=== PATIENT | female | born 1945 | race Caucasian/White ===

== ENCOUNTER 2024-03-30 06:56 | Emergency (ER) | payer MEDICARE, OTHER, SELFPAY ==
[2024-03-30] VITALS (9 sets, daily range): BP systolic 146–187; BP diastolic 71–87; PULSE 68–79; RESP 16–22; TEMP 36.1; O2SAT 93–99; BMI 24.5
--- NOTE | 2024-03-30 07:14 | ED.SEIZURE ---
HPI - Seizure General Chief Complaint: Seizure Stated Complaint: Seizure Time Seen by Provider: 03/30/24 07:14 Source: patient and EMS Mode of arrival: EMS Limitations: no limitations History of Present Illness HPI Narrative: 79-year-old female presents from home via ambulance for possible seizure-like activity. According to EMS patient did receive 1 mg of Versed, patient has a history of seizures approximately 8 years ago and was cleared by neuro at that time therefore patient not currently on any antiepileptics at this time. Patient states that the last thing she remembered was going to sleep and then waking up in the ambulance. Currently she is not complaining of any symptoms just feels a little tired. Denies any headache visual disturbances chest pain shortness breath fever chills nausea vomiting abdominal pain or any other GI/ symptoms time. States that she has a history of high blood pressure but weaned herself off of any antihypertensives. Not on any blood thinners no recent travel no known sick contacts no trauma or falls at time of evaluation NIH of 0 no focal deficits Review of Systems Review of Systems Narrative: General: Denies fever, chills, weight loss HEENT: Denies headache, eye drainage, eye irritation, head trauma, sore throat, voice change Cardiovascular: Denies any chest pain, palpitations, shortness of breath, tachycardia Respiratory: Denies any shortness of breath, cough, wheeze, stridor GI/: Denies any abdominal pain, nausea, vomiting, diarrhea, bright red blood per rectum, melanotic stools, urinary frequency, urinary retention, dysuria, hematuria MSK: Denies any joint pain, muscle pains, swelling Skin: Denies any rashes, lesions, discoloration Neuro: Positive Seizure-like activity, Denies any headache, lightheadedness, dizziness, fainting, weakness Psych: Denies SI/HI Patient History Social History Smoking Status: Never smoker Smoking Status: Never smoker Exam Narrative Exam Narrative: General: Cooperative, comfortable, well-developed, not in acute distress HEENT: Normocephalic, atraumatic, PERRLA, normal sclera, eyelids normal, Neck: Active full range of motion, atraumatic Chest: Normal to inspection, negative crepitus, no overlying erythema ecchymosis Respiratory: Normal respiratory effort, not in acute respiratory distress, clear to auscultation bilaterally negative cough, wheeze, tachypnea, rhonchi, rales Cardiology: Regular rate rhythm negative gallop, murmur, rubs GI/: Normal to inspection, soft, nonrigid, no tenderness to palpation, exam deferred MSK: Full range of active range of motion of all 4 extremities, atraumatic Skin: No rashes lesions noted Neuro: NIH of 0, no focal deficits noted, Alert awake oriented x3, moves all 4 extremities spontaneously, cranial nerves intact, able to answer all questions appropriately follows commands appropriately Psych: Cooperative, negative suicidal or homicidal ideations Initial Vital Signs Initial Vital Signs: Vital Signs Temperature 96.9 F L 03/30/24 06:58 Pulse Rate 77 03/30/24 06:58 Respiratory Rate 18 03/30/24 06:58 Blood Pressure 154/87 H 03/30/24 06:58 Pulse Oximetry 93 03/30/24 06:58 Oxygen Delivery Method Room Air 03/30/24 06:58 Course Orders Ordered: ED Orders 03/30/24 07:16 CT head/brain wo con Stat EKG-12 Lead Stat 03/30/24 07:25 Urine Microscopic Stat 03/30/24 08:04 CBC Auto Diff [Complete Blood Count AUTO DIFF] Stat CMP [Comprehensive Metabolic Panel] Stat Covid-19 + FLU A/B + RSV - PCR Stat Lactate (Lactic Acid) Stat Lipase Stat MAG [Magnesium] Stat Discontinued Medications Potassium Chloride (Potassium Chloride 20 Meq Tab) 40 meq PO NOW ONE Stop: 03/30/24 08:28 Last Admin: 03/30/24 08:48 Dose: 40 meq Documented By: CTS Vital Signs Vital signs: Vital Signs - 8 hr 03/30/24 06:58 03/30/24 07:09 03/30/24 07:24 Temperature 96.9 F L Pulse Rate 77 79 Respiratory Rate 18 16 Blood Pressure 154/87 H 178/77 H Pulse Oximetry 93 94 Oxygen Delivery Method Room Air 03/30/24 07:24 03/30/24 07:30 03/30/24 07:30 Temperature Pulse Rate 75 71 Respiratory Rate 20 16 Blood Pressure 163/73 H Pulse Oximetry 94 94 Oxygen Delivery Method 03/30/24 07:50 03/30/24 07:50 03/30/24 08:00 Temperature Pulse Rate 70 Respiratory Rate 20 Blood Pressure 146/71 H 187/79 H Pulse Oximetry 94 Oxygen Delivery Method 03/30/24 08:00 03/30/24 08:30 03/30/24 08:30 Temperature Pulse Rate 72 70 Respiratory Rate 22 17 Blood Pressure 176/82 H Pulse Oximetry 94 98 Oxygen Delivery Method MDM - Seizure Differential Diagnosis Differential diagnosis: Likely other (Seizure, intracranial hemorrhage, electrolyte abnormality, urinary tract infection) Lab Data 03/30/24 08:04 03/30/24 08:04 Labs: Lab Results 03/30/24 03/30/24 Range/Units 07:25 08:04 WBC 10.1 (4.5-11.0) X10^3/uL RBC 4.58 (4.0-5.2) X10^6/uL Hgb 14.3 (12.0-16.0) g/dL Hct 42.5 (36-46) % MCV 92.9 (80-100) fL MCH 31.3 (26-34) PG MCHC 33.7 (30-36) % RDW 14.2 (11.6-14.8) % Plt Count 202 (150-400) X10^3/uL Neut % (Auto) 82.8 H (50-75) % Lymph % (Auto) 13.2 L (25-40) % [place] % (Auto) 3.4 (3-14) % Eos % (Auto) 0.1 L (2-4) % Baso % (Auto) 0.5 (0-2) % Neut # (Auto) 8400 H (5090-9279) /uL Lymph # (Auto) 1300 (1501-3293) /uL [place] # (Auto) 300 (0-900) /uL Eos # (Auto) 0 (0-450) /uL Baso # (Auto) 100 (0-100) /uL Sodium 138 (137-145) mmol/L Potassium 3.1 L (3.4-5.1) mmol/L Chloride 105 (98-107) mmol/L Carbon Dioxide 25 (22-32) mmol/L BUN 19 H (7-17) mg/dL Creatinine 0.83 (0.52-1.04) mg/dL Estimated GFR > 60 (>60) mL/min BUN/Creatinine Ratio 22.9 H (6-22) Glucose 118 H (80-110) mg/dL Lactate 0.9 (0.7-2.1) mmol/L Calcium 8.4 (8.4-10.2) mg/dL Magnesium 1.6 (1.6-2.3) mg/dL Total Bilirubin 0.5 (0.2-1.3) mg/dL AST 28 (14-36) IU/L ALT 20 (<35) IU/L Alkaline Phosphatase 57 (38-126) U/L Total Protein 6.6 (6.3-8.2) g/dL Albumin 3.6 (3.5-5.0) g/dL Globulin 3.0 (1.7-4.1) g/dL Albumin/Globulin Ratio 1.2 (1.0-2.8) Lipase 147 (23-300) U/L Urine RBC 1-5/hpf (0-5/HPF) Urine WBC 1-5/hpf (0-5/HPF) Ur Squamous Epith Cells 1-5 /hpf (0-5/HPF) Urine Bacteria Few (2-10) H (None) Ur Culture Indicated? Cult not indicated Vol Urine Centrifuged 10ml (spun) Urine Dip Bedside Urine Glucose Negative Bedside Urine Bilirubin - Negative Bedside Urine Ketone - Negative Urine Specific [place] 1.020 Bedside Urine Occult Blood - Negative Bedside Urine pH 6.5 Bedside Urine Protein - Negative Bedside Urine Urobilinogen - Negative Bedside Urine Nitrite - Negative Bedside Urine Leukocytes +/- [address] scan - head: Radiologist's Impression: [address] [address] [address] Scan Report Signed Patient: Jacinta Owens MR#: [id number] : 1945 Acct:[id number] Age/Sex: 79 / F Date of Service: 03/30/24 Loc: ED Accession Number: [id number] Procedure: CT head/brain wo con Ordering Provider: Derian Richardson D.O. PROCEDURE: CT HEAD/BRAIN WO CON INDICATIONS: seizure TECHNIQUE: Noncontrast 4.5 mm thick angled axial sections acquired from the foramen magnum to the vertex, with coronal and sagittal reformats. For radiation dose reduction, the following was used: automated exposure control, adjustment of mA and/or kV according to patient size. COMPARISON: None. FINDINGS: Image quality: Diagnostic. CSF spaces: Basal cisterns are patent. No extra-axial fluid collections. The ventricles are symmetric in size and shape. Brain: No intracranial bleeds or masses. There is cerebral volume loss for age, with resultant ventricular and sulcal prominence. There are periventricular and deep white matter chronic small vessel ischemic changes. There is intracranial internal carotid artery atherosclerosis. Skull and face: Calvarium and visualized facial bones appear intact, without suspicious lesions. Sinuses: Visualized sinuses and mastoids are clear. IMPRESSION: No acute intracranial pathology. ECG Data Interpretation: EKG interpreted ED physician sinus 72 beats per minute QTC 440, normal axis, nonspecific ST changes no STEMI MDM Narrative Medical decision making narrative: 79-year-old female past medical history hypertension seizures that years ago presents for possible seizure-like activity. States it was unwitnessed prior to arrival patient did receive 1 mg eye the Versed by EMS. Time of evaluation patient A&O x4 NIH of 0 no focal deficits noted. She states that 8 years ago she had possible seizure-like activity had ECG done which was negative and was never started on any antiepileptics. Patient had lab work imaging EKG urinalysis performed here in the emergency department. Urinalysis not consistent with an acute urinary tract infection. EKG nonischemic in nature. 0920: Patient re-evaluated no new complaints at this time, patient has been seizure-free since presentation here in the emergency department, patient and family member at bedside state that they would like to be discharged home with neurology follow up and primary care follow up. Patient is still pending respiratory panel, however they state that they are okay with being discharged before results, we state that we will call them if abnormal. They agree with this plan. At time of evaluation at discharge patient NIH of 0 no focal deficits, strict return precautions given they verbalized understanding of this and agrees to being discharged home with outpatient follow up Discharge Plan Departure Patient Disposition: Home Clinical Impression: Observed seizure-like activity Instructions: DI for Seizure Disorder -- Adult Activity Restrictions/Additional Instructions: Please follow up with the primary care and neurology Please read the discharge instructions sheet carefully and bring all papers to all doctor follow-up visits, as it may contain information that your doctor may want to see. Disease processes change and evolve, if your symptoms worsen or if you develop any new symptoms that are concerning to you please return for evaluation. Your evaluation today does not show any evidence of any life-threatening/serious illnesses requiring admission to the hospital or surgery. Please follow-up with your doctor for re-evaluation in approximately 1 day. Seek immediate medical attention for any worrisome symptoms. *If you do not have a primary care provider please contact the [facility] Resource line at [phone]. They will ask some questions about your medical history and help get you set up with a doctor in the community. Referrals: Juventino Valiente MD [Non-Staff] - 3-5 days Stand Alone Forms: Patient Portal/API/Survey
[2024-03-30 08:02] LABS: RBC Urine 1-5/HPF (0-5/HPF); Urine Volume 10mL (spun); WBC Urine 1-5/HPF (0-5/HPF)
[2024-03-30 08:03] LABS: Bacteria Urine Few (2-10); Culture Indicated Urine Cult Not Indicated; Squamous Epithelial Cell Urine 1-5 /HPF (0-5/HPF)
[2024-03-30 08:11] LABS: Add Manual Diff / Slide Review NO; Basophils Absolute Auto 100 /uL (0-100); Basophils Percent Auto 0.5 % (0-2); Eosinophils Absolute Auto 0 /uL (0-450); Eosinophils Percent Auto 0.1 % (2-4); Hematocrit 42.5 % (36-46); Hemoglobin 14.3 g/dL (12.0-16.0); Lymphocytes Absolute Auto 1300 /uL (1100-4500); Lymphocytes Percent Auto 13.2 % (25-40); Mean Corpuscular HGB Conc 33.7 % (30-36); Mean Corpuscular Hemoglobin 31.3 PG (26-34); Mean Corpuscular Volume 92.9 fL (80-100); Monocytes Absolute Auto 300 /uL (0-900); Monocytes Percent Auto 3.4 % (3-14); Neutrophils Absolute Auto 8400 /uL (1500-7000); Neutrophils Percent Auto 82.8 % (50-75); Platelet Count 202 X10^3/uL (150-400); Red Blood Cell Count 4.58 X10^6/uL (4.0-5.2); Red Cell Distribution Width 14.2 % (11.6-14.8); White Blood Cell Count 10.1 X10^3/uL (4.5-11.0)
--- NOTE | 2024-03-30 08:12 | EKG_ITS ---
[address] [address] Test Date: 2024-03-30 Pat Name: Jacinta Owens Department: [facility] Room: Gender: Female Entry Level: : 1945 Requested By: Order Number: [id number] Reading MD: Valente Ronquillo Measurements Intervals [place] Rate: 72 P: 62 VA: 152 QRS: -3 QRSD: 78 T: 73 QT: 402 QTc: 440 Interpretive Statements Normal sinus rhythm Possible Left atrial enlargement Nonspecific T wave abnormality Electronically Signed On 03-30-2024 8:31:23 PST by Valente Ronquillo
[2024-03-30 08:24] LABS: Lactate (Lactic Acid) 0.9 mmol/L (0.7-2.1)
[2024-03-30 08:25] LABS: Alanine Aminotransferase 20 IU/L (<35); Albumin 3.6 g/dL (3.5-5.0); Albumin Globulin Ratio 1.2 (1.0-2.8); Alkaline Phosphatase 57 U/L (38-126); Aspartate Aminotransferase 28 IU/L (14-36); BUN Creatinine Ratio 22.9 (6-22); Bilirubin Total 0.5 mg/dL (0.2-1.3); Blood Urea Nitrogen 19 mg/dL (7-17); Calcium 8.4 mg/dL (8.4-10.2); Carbon Dioxide 25 mmol/L (22-32); Chloride 105 mmol/L (98-107); Estimated Glomerular Filt Rate > 60 mL/min (>60); Glucose 118 mg/dL (80-110); HEMOLYSIS < 15 (0-50); Lipase 147 U/L (23-300); Magnesium 1.6 mg/dL (1.6-2.3); Potassium 3.1 mmol/L (3.4-5.1); Sodium 138 mmol/L (137-145); Total Protein 6.6 g/dL (6.3-8.2)
--- NOTE | 2024-03-30 08:39 | PC.NURSE ---
Daughter at bedside. states that pt was sleeping in her room and daughter her screaming, arrived to mothers room and described that pt was screaming and in a rigid posturing position lasting about 30 sec. [place] 911[place] [facility]. pt was confused for short period of time after episode per daughter. versed was given by [place] [facility] in route. pt is AAOx3 at this time. ambulatory when needed. Per daughter, pt has had unconfirmed episodes of either syncope or seizures yearly. has seen neuro and had extensive work up which was negative. pt does not take seizure medications. weaned herself off her HTN meds. Just moved here from [place] less than a year ago. No PCP in [place].
[2024-03-30] MEDS: POTASSIUM CHLORIDE 20 MEQ TAB 40 MEQ PO (08:48)
[2024-03-30 09:11] LABS: Influenza A - CEPHEID Flu A NEGATIVE (NEGATIVE); Influenza B - CEPHEID Flu B NEGATIVE (NEGATIVE); Respiratory Syncytial Virus Negative (Negative)
[2024-03-30 09:23] LABS: COVID-19 CEPHEID 4-PLEX PCR Negative (Negative)
== END 2024-03-30 09:29 | disposition home or self-care (01) ==
PROVIDERS: Emergency Provider Student in an Organized Health Care Education/Training Program; Referring Provider Student in an Organized Health Care Education/Training Program
DX: G40.909 Epilepsy, unspecified, not intractable, without status epilepticus (principal)
CPT/HCPCS: 0241U; 36415; 70450; 80053; 81003; 81015; 83605; 83690; 83735; 85025; 93005; 99284